=== PATIENT | female | born 1990 | race African-American/Black ===

== ENCOUNTER 2024-08-24 11:38 | Emergency (ER) | payer OTHER ==
[~2024-08-24] VITALS: Ht 167.6 cm; Wt 75.0 kg
[~2024-08-24 11:38] MED LIST: ARIP2TAB3 PO; TRAZ-251 PO
[2024-08-24 11:40] VITALS: BP 160/100; PULSE 71; RESP 18; TEMP 36.9; O2SAT 100; O2SAT 98
== END 2024-08-24 12:21 | disposition home or self-care (01) ==
LOC: ER 11:49
DX: Z00.8 Encounter for other general examination (principal); Z79.899 Other long term (current) drug therapy
CPT/HCPCS: 99281